=== PATIENT | male | born 1990 | race Caucasian/White ===

== ENCOUNTER 2021-11-25 11:37 | Emergency (ER) | payer SELFPAY ==
[~2021-11-25] VITALS: Ht 170.2 cm; Wt 74.8 kg
[2021-11-25] MEDS ORDERED: ZOLOFT50 MG PO (12:17)
[2021-11-25] MEDS ORDERED: HEMLIBRA INJ (12:18)
== END 2021-11-25 16:43 | disposition home or self-care (01) ==
LOC: ED 11:37
DX: U07.1 COVID-19 (principal); Z79.899 Other long term (current) drug therapy
CPT/HCPCS: 80048; 81001; 84443; 85025; 99284; G0480; U0003